=== PATIENT | female | born 1940 | race Caucasian/White ===

== ENCOUNTER 2017-08-02 13:07 | Emergency (ER) | payer OTHER, MEDICARE, BC ==
[2017-08-02 13:14] VITALS: TEMP 95.7; O2SAT 99
[2017-08-02 13:48] VITALS: RESP 20
[2017-08-02 15:14] VITALS: BP 147/69; PULSE 58
== END 2017-08-02 15:10 | disposition home or self-care (01) | DRG 999 ==
LOC: ED 13:07
DX: V43.52XA Car driver injured in collision with other type car in traffic accident, initial encounter (principal); S80.01XA Contusion of right knee, initial encounter; S09.90XA Unspecified injury of head, initial encounter
CPT/HCPCS: 70450; 72125; 99283; 99284; L0130